=== PATIENT | male | born 1990 | race Caucasian/White ===

== ENCOUNTER 2018-02-18 11:04 | Emergency (ER) | payer OTHER ==
[2018-02-18] MEDS ORDERED: Gelfoam Sponge SIZE 100* SPONGE TOPICAL ONE (11:24)
[2018-02-18 13:25] VITALS: BP 140/104
--- NOTE | 2018-02-18 17:44 | ED ---
Laceration/Wound HPI - HPI Summary HPI Summary: Patient is a 27-year-old male who presents emergency department for wound to his right thumb. Patient states he cut his thumb on a mandolin 2 days ago. Wound started bleeding today and he went to [facility]. They were unable to stop bleeding and he was referred to the emergency department. Patient has no past medical history. His tetanus was updated 2 days ago. Symptoms are mild in severity. No current modifying factors. - History of Current Complaint Stated Complaint: RT THUMB INJURY Time Seen by Provider: 02/18/18 11:21 Hx Obtained From: Patient Pain Intensity: 2 Pain Scale Used: 0-10 Numeric - Allergy/Home Medications Allergies/Adverse Reactions: Allergies Allergy/AdvReac Type Severity Reaction Status Date / Time No Known Allergies Allergy Verified 06/25/15 19:26 Home Medications: Home Medications Sertraline* [Zoloft*] 25 mg PO DAILY 02/18/18 [History Confirmed 02/18/18] PMH/Surg Hx/FS Hx/Imm Hx Previously Healthy: Yes Endocrine/Hematology History: Denies: Hx Diabetes Cardiovascular History: Denies: Hx Hypertension History: Denies: Hx Renal Disease Infectious Disease History: No Infectious Disease History: Denies: Traveled Outside the [place] in Last 30 Days - Social History Occupation: Student Lives: Dormitory/Roommates Alcohol Use: Rare Substance Use Type: Reports: None Smoking Status (MU): Never Smoked Tobacco Review of Systems Positive: Other - Avulsion to right thumb All Other Systems Reviewed And Are Negative: Yes Physical Exam Triage Information Reviewed: Yes Vital Signs On Initial Exam: Initial Vitals Temp Pulse Resp BP Pulse Ox 98.3 F 76 15 142/97 100 02/18/18 11:08 02/18/18 11:08 02/18/18 11:08 02/18/18 11:08 02/18/18 11:08 Vital Signs Reviewed: Yes Appearance: Positive: Well-Appearing - Patient sitting in bed in no acute distress. Musculoskeletal: Positive: Other - Large avulsion noted to the pad of the right thumb with mild active bleeding. No bone exposed. No nail involvement. No bony tenderness. Full range of motion of digit. Neurological: Positive: Normal, CN Intact II-III Psychiatric: Positive: Normal Diagnostics - Vital Signs Vital Signs Temp Pulse Resp BP Pulse Ox 02/18/18 13:14 98.7 F 73 16 140/104 97 02/18/18 11:08 98.3 F 76 15 142/97 100 - Laboratory Lab Statement: Any lab studies that have been ordered have been reviewed, and results considered in the medical decision making process. Laceration Repair Course/Dx - Course Course Of Treatment: Patient presenting to the emergency department for bleeding avulsion to his right thumb. He is well-appearing. Has no past medical history. Wound was irrigated and Gelfoam and compressing dressing were placed with good hemostasis. Advised patient to leave dressing in place until tomorrow. If bleeding returns to apply pressure. Return to the ER if symptoms change or worsen. To follow-up with the [facility]. - Differential Dx Differental Diagnoses: Avulsion - Clinical Impression Provider Diagnoses: Skin avulsion Discharge - Sign-Out/Discharge Documenting (check all that apply): Discharge/Admit/Transfer - Discharge Plan Condition: Good Disposition: HOME Patient Education Materials: Skin Avulsion (ED) Referrals: Jv Kaur MD [Primary Care Provider] - Additional Instructions: Follow up with the health clinic Keep wound clean and dry Apply direct pressure to wound if bleeding returns Return to ER if symptoms change or worsen - Billing Disposition and Condition Condition: GOOD Disposition: HOME
== END 2018-02-18 13:14 | disposition home or self-care (01) ==
LOC: ED 11:04
DX: S61.011A Laceration without foreign body of right thumb without damage to nail, initial encounter (principal); W26.8XXA Contact with other sharp object(s), not elsewhere classified, initial encounter; Y92.9 Unspecified place or not applicable
CPT/HCPCS: 99282